=== PATIENT | male | born 1995 | race Caucasian/White ===

== ENCOUNTER → 2023-09-30 07:50 | Outpatient (REF) | payer BC, SELFPAY | LOC: RCS 07:50 | PROVIDERS: ATTENDING PHYSICIAN Family Medicine | DX: Z13.6 Encounter for screening for cardiovascular disorders (principal) | CPT/HCPCS: 93017 ==

== ENCOUNTER 2023-10-25 20:13 | Emergency (ER) | payer OTHER, BC, SELFPAY ==
[2023-10-25 20:14] VITALS: BP 149/86
[2023-10-25] MEDS: MOTRIN 600 MG PO (21:45)
[2023-10-25] MEDS: ADACEL 0.5 ML IM (21:45)
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
== END 2023-10-25 21:50 | disposition home or self-care (01) ==
LOC: EMR 20:13
PROVIDERS: EMERGENCY PHYSICIAN Emergency Medicine; FAMILY PHYSICIAN Family Medicine
DX: S50.01XA Contusion of right elbow, initial encounter (principal); S60.211A Contusion of right wrist, initial encounter; S50.812A Abrasion of left forearm, initial encounter; S50.811A Abrasion of right forearm, initial encounter; S60.512A Abrasion of left hand, initial encounter; Y04.8XXA Assault by other bodily force, initial encounter; Y93.89 Activity, other specified; Y92.238 Other place in hospital as the place of occurrence of the external cause; Y99.0 Civilian activity done for income or pay
CPT/HCPCS: 99283; 90471; 73080; 73110; 90715

== ENCOUNTER 2024-07-19 18:34 | Emergency (ER) | payer OTHER, SELFPAY ==
[2024-07-19 18:36] VITALS: BP 140/69
[2024-07-19 19:15] LABS: COVID-19 Antigen Negative (Negative)
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
== END 2024-07-19 20:39 | disposition home or self-care (01) ==
LOC: EMR 18:34
PROVIDERS: Emergency Medicine; EMERGENCY PHYSICIAN Emergency Medicine
DX: J10.1 Influenza due to other identified influenza virus with other respiratory manifestations (principal)
CPT/HCPCS: 99285; 71046; 87502; 87811; 93005

== ENCOUNTER 2025-07-09 13:40 | Emergency (ER) | payer OTHER, SELFPAY ==
[2025-07-09 13:47] VITALS: BP 113/67
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
[2025-07-09] MEDS: OMNIPAQUE 50 ML PO (17:11)
[2025-07-09 17:41] LABS: Hematocrit 43.5 % (39.0-52.0); Hemoglobin 14.8 g/dL (13.0-18.0); Mean Corp Hgb Conc. 34.0 g/dL (33.0-37.0); Mean Corpuscular Volume 89.9 fL (80.0-94.0); Nucleated Red Blood Cells % 0 % (-); Platelet Count 252 10^3/uL (130-400); Red Cell Dist. Width 11.9 % (11.5-14.5)
[2025-07-09 17:56] LABS: Blood Urea Nitrogen 17 mg/dl (9-20); Calcium 9.7 mg/dl (8.4-10.2); Carbon Dioxide 30 mmol/L (22-30); Chloride 99 mmol/L (98-107); Glucose 90 mg/dl (70-99); Potassium 4.3 mmol/L (3.5-5.1); Sodium 138 mmol/L (135-145); eGFR > 60.00
[2025-07-09 18:00] LABS: Urine Character Clear (Clear)
[2025-07-09 19:09] LABS: Urine Squamous Cell 0-2 /LPF (Few)
[2025-07-09 19:10] LABS: Urine Red Blood Cell 0-2 /HPF (0-2); Urine White Cell 0-2 /HPF (0-5)
[2025-07-09 20:26] VITALS: BP 110/70
== END 2025-07-09 20:30 | disposition home or self-care (01) ==
LOC: EMR 13:40
PROVIDERS: EMERGENCY PHYSICIAN Emergency Medicine; FAMILY PHYSICIAN Physician Assistant Medical
DX: R10.9 Unspecified abdominal pain (principal); Z87.01 Personal history of pneumonia (recurrent)
CPT/HCPCS: 99284; 74177; 80048; 81003; 81015; 85025; Q9967